=== PATIENT | female | born 1975 | race Caucasian/White ===

== ENCOUNTER 2022-12-12 22:56 | Emergency (ER) | payer OTHER ==
[~2022-12-12] VITALS: Ht 170.2 cm; Wt 113.4 kg
[2022-12-12 23:07] VITALS: BP 151/97
--- NOTE | 2022-12-12 23:22 | NUR ---
PT W/C ASSISTED TO BED #1
--- NOTE | 2022-12-12 23:43 | NUR ---
Dr. Richardson examining patient.
[2022-12-13] LABS: BASOPHILS % (AUTO) 0.2 % (0.0-2.0); EOSINOPHILS # (AUTO) 0.1 K/uL (0-0.4); HEMATOCRIT 38.6 % (36-48); HEMOGLOBIN 12.9 g/dL (12.0-16.0); LYMPHOCYTES # (AUTO) 1.6 K/uL (2.5-16.5); LYMPHOCYTES % (AUTO) 12.7 % (20.5-51.1); MEAN CORPUSCULAR HEMOGLOBIN 29 pg (27-31); MEAN CORPUSCULAR HGB CONC 33 g/dL (33-37); MEAN CORPUSCULAR VOLUME 87.3 fL (80-94); MONOCYTES # (AUTO) 0.8 K/uL (0.8-1.0); MONOCYTES % (AUTO) 6.6 % (1.7-9.3); NEUTROPHILS # (AUTO) 10.2 K/uL (1.8-7.7); NEUTROPHILS % (AUTO) 79.5 % (42.2-75.2); PLATELET COUNT (AUTO) 450 K/uL (140-450); RED BLOOD CELL COUNT(AUTO) 4.42 MIL/uL (4.20-5.40); RED CELL DISTRIBUTION WIDTH 13.3 % (11.6-13.7); WHITE BLOOD COUNT (AUTO) 12.9 K/uL (4.8-10.8)
[2022-12-13 00:19] LABS: ALBUMIN 3.3 g/dL (3.4-5.0); ANION GAP 10.7 (8-16); CARBON DIOXIDE 29.1 mmol/L (21-32); CREATININE 0.6 mg/dL (0.6-1.3); POTASSIUM 3.8 mmol/L (3.5-5.1); TOTAL BILIRUBIN 0.2 mg/dL (0.0-1.0)
[2022-12-13] MEDS ORDERED: FURO-572 PO (03:02)
[2022-12-13 03:11] VITALS: BP 143/89
--- NOTE | 2022-12-13 03:20 | NUR ---
Patient discharged with v/s stable. Written and verbal after care instructions given and explained. Patient alert, oriented and verbalized understanding of instructions. All questions addressed prior to discharge. ID band removed. Patient advised to follow up with PMD. Rx of Lasix sent to preferred pharmacy. Patient educated on indication of medication including possible reaction and side effects. Opportunity to ask questions provided and answered.
== END 2022-12-13 03:20 | disposition home or self-care (01) ==
LOC: MED 22:56
DX: R60.0 Localized edema (principal); Z20.822 Contact with and (suspected) exposure to COVID-19; R06.02 Shortness of breath; R07.9 Chest pain, unspecified; R00.2 Palpitations; Z88.8 Allergy status to other drugs, medicaments and biological substances; Z79.899 Other long term (current) drug therapy; Z98.890 Other specified postprocedural states
CPT/HCPCS: 36415; 71045; 71275; 80053; 83880; 84484; 85025; 85379; 87426; 93005; 93970; 99285; Q0092; Q9967